=== PATIENT | female | born 1935 | race Caucasian/White ===

== ENCOUNTER 2017-11-13 15:26 | Inpatient (IN) | payer MEDICARE, OTHER ==
[~2017-11-13] VITALS: Ht 167.6 cm; Wt 59.6 kg
[~2017-11-13 15:26] MED LIST: AMOCLA875 PO; DIGO.125; DIGO.25 PO; ESTR.1TPW; ESTR.1TPW TOP; FENO145; FENO145 PO; FENO67 PO; FISH1000; FISH1000 PO; FLONASE ALLERG9.9 ML; FOLI400; FOLI400 PO; Flecainide Acet50 MG PO; GABA100 PO; GLUCOSAMIN-CHO1 EACH; Glucosamine &1 EACH PO; LEVO-T112 MCG PO; LEVSOD125 PO; METO25 PO; METO25ER PO; METO50 PO; METO50ER PO; OMEP10ER PO; OMEP40CA12 PO; OMEPRAZOLE MAGN20 MG PO; PARO10; PARO10 PO; WARF1 PO; WARF5 PO; WARF6 PO; WARF7.5 PO
[2017-11-13 16:53] LABS: BASOPHILS ABSOLUTE AUTO 0.04 K/mm3 (0.00-0.23); BASOPHILS PERCENT AUTO 1 % (0-2); EOSINOPHILS ABSOLUTE AUTO 0.04 K/mm3 (0.00-0.68); EOSINOPHILS PERCENT AUTO 1 % (0-6); Hematocrit 42.7 % (33.0-51.0); Hemoglobin 14.2 g/dL (11.5-16.0); IMMATURE GRAN ABSOLUTE AUTO 0.07 K/mm3 (0.00-0.10); IMMATURE GRAN PERCENT AUTO 1 % (0-1); LYMPHOCYTES ABSOLUTE AUTO 0.98 K/mm3 (0.84-5.20); LYMPHOCYTES PERCENT AUTO 13 % (21-46); MONOCYTES ABSOLUTE AUTO 0.42 K/mm3 (0.16-1.47); MONOCYTES PERCENT AUTO 6 % (4-13); Mean Corpuscular HGB 32.4 pg (26.0-34.0); Mean Corpuscular HGB Conc 33.3 g/dL (31.5-36.5); Mean Corpuscular Volume 98 fL (80-100); Mean Platelet Volume 11.6 fL (9.1-12.4); NEUTROPHILS ABSOLUTE AUTO 5.83 K/mm3 (1.96-9.15); NEUTROPHILS PERCENT AUTO 79 % (41-73); Platelet Count 182 K/mm3 (150-400); RDW Coefficient Variation 13.2 % (11.7-14.2); RDW Standard Deviation 47.5 fL (35.1-46.3); Red Blood Cell Count 4.38 M/mm3 (3.80-5.20); White Blood Cell Count 7.38 K/mm3 (4.00-11.30)
[2017-11-13 17:04] LABS: International Normalized Ratio 1.06
[2017-11-13 17:38] LABS: Alanine Aminotransfer (ALT/SGP 24 U/L (12-78); Albumin, Blood 3.4 g/dL (3.4-5.0); Albumin/Globulin Ratio 1.1 (0.8-1.8); Alk Phos 65 U/L (50-136); Anion Gap 7 mmol/L (6-16); Aspartate Aminotrans (AST/SGOT 15 U/L (12-37); Bilirubin, Total 1.2 mg/dL (0.1-1.0); Blood Urea Nitrogen 17 mg/dL (8-24); Bun/Creatinine Ratio 26.7 (12.0-20.0); CO2, Blood 27 mmol/L (21-32); Calcium, Blood 8.5 mg/dL (8.5-10.1); Chloride, Blood 109 mmol/L (98-108); Creatinine, Blood 0.64 mg/dL (0.40-1.00); Globulin, Blood 3.2 g/dL (2.2-4.0); Glomerular Filtration Rate >60 (60-); Glucose, Blood 94 mg/dL (70-99); Potassium, Blood 3.9 mmol/L (3.5-5.5); Sodium, Blood 143 mmol/L (136-145); Total Protein, Blood 6.6 g/dL (6.4-8.2)
[2017-11-13 17:54] LABS: Source, Urine Catheter
[2017-11-13 17:59] LABS: Appearance, Urine Clear (Clear); Bilirubin, Urine Neg (Neg); Blood, Urine Neg (Neg); Color, Urine Yellow (P-Yellow); Glucose Qualitative, Urine Neg (Neg); Ketones, Urine Neg (Neg); Leukocyte Esterase, Urine Neg (Neg); Nitrite, Urine Neg (Neg); Protein, Urine Neg (Neg); Specific Gravity, Urine 1.015 (1.003-1.022); Urobilinogen, Urine NORM (Normal)
[2017-11-14] MEDS ORDERED: ELIQUIS2.5 MG PO (03:12)
[2017-11-14] MEDS ORDERED: CYAFAPYR PO (03:14)
[2017-11-14 05:19] LABS: BASOPHILS ABSOLUTE AUTO 0.04 K/mm3 (0.00-0.23); BASOPHILS PERCENT AUTO 1 % (0-2); EOSINOPHILS ABSOLUTE AUTO 0.08 K/mm3 (0.00-0.68); EOSINOPHILS PERCENT AUTO 1 % (0-6); Hematocrit 40.6 % (33.0-51.0); Hemoglobin 13.5 g/dL (11.5-16.0); IMMATURE GRAN ABSOLUTE AUTO 0.02 K/mm3 (0.00-0.10); IMMATURE GRAN PERCENT AUTO 0 % (0-1); LYMPHOCYTES ABSOLUTE AUTO 1.05 K/mm3 (0.84-5.20); LYMPHOCYTES PERCENT AUTO 18 % (21-46); MONOCYTES ABSOLUTE AUTO 0.58 K/mm3 (0.16-1.47); MONOCYTES PERCENT AUTO 10 % (4-13); Mean Corpuscular HGB 32.6 pg (26.0-34.0); Mean Corpuscular HGB Conc 33.3 g/dL (31.5-36.5); Mean Corpuscular Volume 98 fL (80-100); Mean Platelet Volume 12.3 fL (9.1-12.4); NEUTROPHILS ABSOLUTE AUTO 4.22 K/mm3 (1.96-9.15); NEUTROPHILS PERCENT AUTO 71 % (41-73); Platelet Count 171 K/mm3 (150-400); RDW Coefficient Variation 13.2 % (11.7-14.2); Red Blood Cell Count 4.14 M/mm3 (3.80-5.20); White Blood Cell Count 5.99 K/mm3 (4.00-11.30)
[2017-11-14 05:32] LABS: International Normalized Ratio 1.06
[2017-11-14 05:53] LABS: Anion Gap 7 mmol/L (6-16); Blood Urea Nitrogen 19 mg/dL (8-24); CO2, Blood 25 mmol/L (21-32); Calcium, Blood 8.2 mg/dL (8.5-10.1); Chloride, Blood 110 mmol/L (98-108); Creatinine, Blood 0.63 mg/dL (0.40-1.00); Glomerular Filtration Rate >60 (60-); Glucose, Blood 114 mg/dL (70-99); Potassium, Blood 4.1 mmol/L (3.5-5.5); Sodium, Blood 142 mmol/L (136-145)
[2017-11-16 04:39] LABS: BASOPHILS ABSOLUTE AUTO 0.03 K/mm3 (0.00-0.23); BASOPHILS PERCENT AUTO 0 % (0-2); EOSINOPHILS ABSOLUTE AUTO 0.02 K/mm3 (0.00-0.68); EOSINOPHILS PERCENT AUTO 0 % (0-6); Hematocrit 37.4 % (33.0-51.0); Hemoglobin 12.3 g/dL (11.5-16.0); IMMATURE GRAN ABSOLUTE AUTO 0.07 K/mm3 (0.00-0.10); IMMATURE GRAN PERCENT AUTO 1 % (0-1); LYMPHOCYTES ABSOLUTE AUTO 0.82 K/mm3 (0.84-5.20); LYMPHOCYTES PERCENT AUTO 7 % (21-46); MONOCYTES ABSOLUTE AUTO 0.82 K/mm3 (0.16-1.47); MONOCYTES PERCENT AUTO 7 % (4-13); Mean Corpuscular HGB 32.8 pg (26.0-34.0); Mean Corpuscular HGB Conc 32.9 g/dL (31.5-36.5); Mean Corpuscular Volume 100 fL (80-100); Mean Platelet Volume 12.4 fL (9.1-12.4); NEUTROPHILS ABSOLUTE AUTO 9.35 K/mm3 (1.96-9.15); NEUTROPHILS PERCENT AUTO 84 % (41-73); Platelet Count 160 K/mm3 (150-400); RDW Coefficient Variation 13.1 % (11.7-14.2); RDW Standard Deviation 48.3 fL (35.1-46.3); Red Blood Cell Count 3.75 M/mm3 (3.80-5.20); White Blood Cell Count 11.11 K/mm3 (4.00-11.30)
[2017-11-17 09:04] LABS: Source, Urine Clean Catch
[2017-11-17 09:12] LABS: Bilirubin, Urine Neg (Neg); Blood, Urine Neg (Neg); Glucose Qualitative, Urine Neg (Neg); Ketones, Urine Neg (Neg); Leukocyte Esterase, Urine Neg (Neg); Nitrite, Urine Neg (Neg); Protein, Urine Neg (Neg); Urobilinogen, Urine NORM (Normal)
[2017-11-17 09:21] LABS: Appearance, Urine Clear (Clear); Color, Urine Yellow (P-Yellow)
[2017-11-18] MEDS ORDERED: DOCU100 PO (11:17)
[2017-11-18] MEDS ORDERED: GAVILAX17 GM PO (11:18)
== END 2017-11-18 15:11 | disposition home health service (06) | DRG 482 ==
LOC: ER 15:26 → SURS 16:52
PROVIDERS: Emergency Medicine; Family Medicine; Internal Medicine; Orthopaedic Surgery
PROC: 0QH734Z Insertion of Internal Fixation Device into Left Upper Femur, Percutaneous Approach (ICD-10-PCS; principal; 2017-11-15 09:00)
DX: S72.002A Fracture of unspecified part of neck of left femur, initial encounter for closed fracture (principal); G62.9 Polyneuropathy, unspecified; I48.91 Unspecified atrial fibrillation; E78.5 Hyperlipidemia, unspecified; E03.9 Hypothyroidism, unspecified; K21.9 Gastro-esophageal reflux disease without esophagitis; Z79.01 Long term (current) use of anticoagulants; W19.XXXA Unspecified fall, initial encounter; Y92.512 Supermarket, store or market as the place of occurrence of the external cause; Z88.8 Allergy status to other drugs, medicaments and biological substances; Z95.0 Presence of cardiac pacemaker; Z87.891 Personal history of nicotine dependence; Z79.51 Long term (current) use of inhaled steroids; Z79.899 Other long term (current) drug therapy
CPT/HCPCS: 36415; 51702; 71045; 73502; 80048; 80053; 81003; 84484; 85025; 85610; 85730; 86850; 86900; 86901; 93005; 93010; 96374; 96375; 97110; 97116; 97162; 97530; 99285; C1713; C1769; G8978; G8979; J0461; J0690; J1100; J1170; J2370; J2405; J3010; J7030

== ENCOUNTER → 2018-12-28 | Outpatient (CLI) | payer MEDICARE, OTHER ==
[~2018-12-28] MED LIST changes: +CYAFAPYR PO; +DOCU100 PO; +ELIQUIS2.5 MG PO; +GAVILAX17 GM PO
== END | disposition home or self-care (01) ==
LOC: LAB 12:00 → LAB SHORT 12:00
DX: N39.0 Urinary tract infection, site not specified (principal)
CPT/HCPCS: 87086

== ENCOUNTER → 2019-01-02 | Outpatient (CLI) | payer MEDICARE, OTHER | END | disposition home or self-care (01) | LOC: LAB SHORT 14:45 → LAB 14:45 | DX: R30.0 Dysuria (principal) | CPT/HCPCS: 87086 ==

== ENCOUNTER 2019-05-21 11:32 | Emergency (ER) | payer MEDICARE, OTHER ==
[~2019-05-21] VITALS: Ht 165.1 cm; Wt 70.3 kg
[2019-05-21 12:20] LABS: BASOPHILS ABSOLUTE AUTO 0.05 K/mm3 (0.00-0.23); BASOPHILS PERCENT AUTO 1 % (0-2); EOSINOPHILS ABSOLUTE AUTO 0.07 K/mm3 (0.00-0.68); EOSINOPHILS PERCENT AUTO 1 % (0-6); Hematocrit 44.4 % (33.0-51.0); Hemoglobin 14.7 g/dL (11.5-16.0); IMMATURE GRAN ABSOLUTE AUTO 0.03 K/mm3 (0.00-0.10); IMMATURE GRAN PERCENT AUTO 1 % (0-1); LYMPHOCYTES ABSOLUTE AUTO 1.63 K/mm3 (0.84-5.20); LYMPHOCYTES PERCENT AUTO 26 % (21-46); MONOCYTES ABSOLUTE AUTO 0.46 K/mm3 (0.16-1.47); MONOCYTES PERCENT AUTO 7 % (4-13); Mean Corpuscular HGB 33.1 pg (26.0-34.0); Mean Corpuscular HGB Conc 33.1 g/dL (31.5-36.5); Mean Corpuscular Volume 100 fL (80-100); Mean Platelet Volume 12.1 fL (9.1-12.4); NEUTROPHILS ABSOLUTE AUTO 3.95 K/mm3 (1.96-9.15); NEUTROPHILS PERCENT AUTO 64 % (41-73); Platelet Count 183 K/mm3 (150-400); RDW Coefficient Variation 12.7 % (11.7-14.2); RDW Standard Deviation 47.6 fL (35.1-46.3); Red Blood Cell Count 4.44 M/mm3 (3.80-5.20); White Blood Cell Count 6.19 K/mm3 (4.00-11.30)
[2019-05-21 12:33] LABS: Alanine Aminotransfer (ALT/SGP 19 U/L (12-78); Albumin, Blood 3.7 g/dL (3.4-5.0); Albumin/Globulin Ratio 1.2 (0.8-1.8); Alk Phos 60 U/L (50-136); Anion Gap 7 mmol/L (6-16); Aspartate Aminotrans (AST/SGOT 14 U/L (12-37); Blood Urea Nitrogen 22 mg/dL (8-24); Bun/Creatinine Ratio 26.8 (12.0-20.0); CO2, Blood 25 mmol/L (21-32); Calcium, Blood 8.6 mg/dL (8.5-10.1); Chloride, Blood 109 mmol/L (98-108); Creatinine, Blood 0.82 mg/dL (0.40-1.00); Globulin, Blood 3.2 g/dL (2.2-4.0); Glomerular Filtration Rate >60 (60-); Glucose, Blood 93 mg/dL (70-99); Potassium, Blood 4.3 mmol/L (3.5-5.5); Sodium, Blood 141 mmol/L (136-145); Total Protein, Blood 6.9 g/dL (6.4-8.2); Troponin I <0.015 ng/mL (0.000-0.040)
[2019-05-21 12:53] LABS: International Normalized Ratio 0.97; Prothrombin Time Results 10.3 Sec (9.7-11.5)
== END 2019-05-21 13:53 | disposition home or self-care (01) ==
LOC: ER 11:32
PROVIDERS: Emergency Medicine
DX: I48.91 Unspecified atrial fibrillation (principal); Z95.0 Presence of cardiac pacemaker; E03.9 Hypothyroidism, unspecified; E78.5 Hyperlipidemia, unspecified; Z88.8 Allergy status to other drugs, medicaments and biological substances; Z91.048 Other nonmedicinal substance allergy status; Z79.899 Other long term (current) drug therapy; Z87.891 Personal history of nicotine dependence
CPT/HCPCS: 36415; 80053; 84484; 85025; 85610; 85730; 93005; 93010; 99285-25

== ENCOUNTER 2019-05-23 13:14 | Day surgery (SDC) | payer MEDICARE, OTHER ==
[~2019-05-23] VITALS: Ht 162.6 cm; Wt 70.0 kg
[2019-05-23] MEDS ORDERED: FISH OIL 1,001000 MG PO (14:11)
[2019-05-23] MEDS ORDERED: PARO10 PO (14:12)
--- NOTE | 2019-05-23 17:20 | NUR ---
PT TO RECOVERY POST PROCEDURE. PT IS DROWSY, BUT ANSWERS QUESTIONS APPROPRIATELY. PT DENIES PAIN, SOB OR NAUSEA. MONITOR AFIB WITH PACED BEATS 70'S, B/P 120/74, AFEBRILE, SPO2 95% RA. L CHEST SITE NO SWELLING/HEMATOMA, TELFA AND TEGADERM DRSG C,D,I. PT'S AT BEDSIDE, ATTENTIVE.
--- NOTE | 2019-05-23 18:07 | NUR ---
EXTENDED RECONVERY PCU 14 PT REPORT RECEIVED AT BEDSIDE FROM CYNDY. PT ALERT, SLEEPY. ABLE TO TRANSFER WITH 1 ASSIST. WEAK AND UNSTEADY. A bit grooggy/ at bedside. vss. left chest incision cd&i. no crepitus or hematoma noted. No bleeding in arm pit noted. pt expressed comfort. Juice and water provided for her. awaiting a dinner meal. Continue pot.
--- NOTE | 2019-05-23 20:13 | NUR ---
DISCHARGE AT APPROX 1930 PATIENT STATED THAT SHE FELT SHE WAS READY TO GO HOME. PATIENT UP AND WALKING AROUND IN ROOM WELL AT THIS TIME. PATIENT STATES SHE FEELS SHE IS BACK TO BASELINE. PATIENT'S PACEMAKER SITE APPEARS DRY WITH A TRACE AMOUNT OF BLOOD ON THE LEFT SIDE OF BANDAGE THAT HAS REMAINED UNCHANGED PER DAY SHIFT RN REPORT, NO CHANGES NOTED TO SITE SINCE ASSUMPTION OF CARE. DISCHARGE INSTRUCTIONS AND PAPERS PROVIDED TO PATIENT. PATIENT EDUCATED ON POST PACEMAKER RESTRICTIONS. PATIENT VERBALIZES UNDERSTANDING. IV AND TELE REMOVED. PATIENT DISCHARGED VIA WHEELCHAIR AT APPROX 1950. PATIENTS STATES MULITPULE TIMES THAT SHE FEELS READY TO GO HOME. PATIENT DISCHARGED VIA WHEELCHAIR BY JUAN DANIEL HER AT APPROX 1950.
== END 2019-05-23 19:50 | disposition home or self-care (01) ==
LOC: MHTC 13:14 → PCU 17:06 → MHTC 19:50
DX: Z45.010 Encounter for checking and testing of cardiac pacemaker pulse generator [battery] (principal); I48.91 Unspecified atrial fibrillation; K21.9 Gastro-esophageal reflux disease without esophagitis; E78.5 Hyperlipidemia, unspecified; E03.9 Hypothyroidism, unspecified; Z79.899 Other long term (current) drug therapy; Z79.01 Long term (current) use of anticoagulants; Z87.891 Personal history of nicotine dependence; Z88.8 Allergy status to other drugs, medicaments and biological substances; Z88.1 Allergy status to other antibiotic agents; Z79.02 Long term (current) use of antithrombotics/antiplatelets
CPT/HCPCS: 33228; 93288; 99152; 99153; C1785; J0690; J1644; J2250; J3010; J7030; J7040

== ENCOUNTER 2020-12-10 06:11 | Day surgery (SDC) | payer MEDICARE, OTHER ==
[~2020-12-10] VITALS: Ht 170.2 cm; Wt 72.8 kg
[~2020-12-10 06:11] MED LIST changes: +COQ-10100 MG PO; +EUTHYROX125 MCG PO; +FISH OIL 1,001000 MG PO; +FOLI1 PO; -FOLI400 PO; -LEVSOD125 PO; +LORA10ER PO; +VITAMIN B125000 MC1 PO; +VITAMIN D310 MC4 PO
--- NOTE | 2020-12-10 07:08 | NUR ---
Ambulatory in Day Surgery Surgical site prepped with 2% Chlorhexidine cloth wipe. Paula Paws warming gown applied. History, Chart, Medications and Allergies reviewed before start of procedure.Lungs clear T/O to Auscultation. Patient confirms NPO status and agrees with scheduled surgery. Pre-Op teaching done. Pt verbalizes understanding. Patient States Post-Procedure ride home has been arranged.
--- NOTE | 2020-12-10 09:34 | NUR ---
PT ARRIVED TO UNIT AT APROX 1015 FROM PACU S/O HARDWARE REMOVAL FROM R HIP. SURGICAL SITE X'S 1 TO R HIP COVERED WITH ADHESIVE DRESSING THAT IS C/D/I. SPINAL ANESTHESIA, PT HAS NO SENSATION IN BILAT FEETTO KNEES WITH FEELING IN THIGHS-DENIES PAIN. PT GIVEN CLEAR LIQUIDS AND POST-OP VS STARTED.
[2020-12-10] MEDS ORDERED: TRAM50 PO (15:22)
[2021-03-14] MEDS ORDERED: ACET325 PO (12:56)
== END 2020-12-10 15:47 | disposition home or self-care (01) ==
LOC: ORSCMMR 06:11 → SURS 09:29 → ORSCMMR 09:29 → ORD 13:45 → ORSCMMR 13:45 → SURS 15:47
PROVIDERS: Orthopaedic Surgery
PROC: 0SPB04Z Removal of Internal Fixation Device from Left Hip Joint, Open Approach (ICD-10-PCS; principal; 2020-12-10 07:30)
DX: T84.9XXA Unspecified complication of internal orthopedic prosthetic device, implant and graft, initial encounter (principal); M25.552 Pain in left hip; I25.10 Atherosclerotic heart disease of native coronary artery without angina pectoris; I48.0 Paroxysmal atrial fibrillation; Z79.01 Long term (current) use of anticoagulants; I48.91 Unspecified atrial fibrillation; E03.9 Hypothyroidism, unspecified; K21.9 Gastro-esophageal reflux disease without esophagitis; Z79.899 Other long term (current) drug therapy
CPT/HCPCS: A9270; C1769; J0690; J2704; J3010; J7120

== ENCOUNTER 2021-03-15 06:06 | Day surgery (SDC) | payer MEDICARE, OTHER ==
[~2021-03-15] VITALS: Ht 167.6 cm; Wt 70.0 kg
[~2021-03-15 06:06] MED LIST changes: +ACET325 PO; +TRAM50 PO
[2021-03-15] MEDS ORDERED: ASPI81CH PO (06:36)
[2021-03-15] MEDS ORDERED: CLOP75 PO (11:26)
[2021-03-15] MEDS ORDERED: METOPROLOL SUCC25 MG PO (11:27)
--- NOTE | 2021-03-15 12:45 | NUR ---
PT UP TO BTR AT NOON, SIGNIFACENT SWELLING ON R FA, MAN PRESSURE TO BTR, THEN MAN PRESSURE AND ADDED 2 CC'S AIR TO TR BAND. PRESSURE HELD FOR 1 HOUR, SITE WRAPPED MOD PRESSURE DRESSING AND COBAN, REVIEWED WITH DR MCKENZIE WHO VISUALIZED ARM AND CONCLUDES IT IS STABLE AT THIS TIME, DR MCKENZIE SPOKE W PT ABOUT METOPROLOL ORDER - DC'D METOPROLOL ORDER. PLAN IS TO GIVE PLAVIX AT DC
--- NOTE | 2021-03-15 16:10 | NUR ---
DISCHARGE PT AMBULATED TO RESTROOM AND DRESSED SELF WITH NO COMPLCATIONS. DR. MCKENZIE AT CHAIR SIDE TO ANSWER ALL OF PT QUESTIONS AND TO EVALUATE PTS RRAD SITE. RRAD SITE WITH NO NEW HEMATOMA, BLEEDING, OR OOZING. PT DOES HAVE A LARGE BRUISE UP HER FOREARM THAT IS NOT HARD TO THE TOUCH. PTS HAND ALSO IS SWOLLEN WITH BRUISING THAT HAS NOT CHANGED SINCE ORIGINAL BLEED. OK TO DC PT PER DR. MCKENZIE. PT WAS MEDICATED WITH 600MG PO PLAVIX UPON DC ORDERED BY DR. MCKENZIE. PT VOICED HER CONCERNS TO DR. MCKENZIE ABOUT ALL THE BLOOD THINNERS SHE WILL BE ON AND DR. MCKENZIE INFORMED PT ON THE NEED FOR THESE MEDICATIONS. PT STATES HER UNDERSTANDING OF DC AND SITE CARE INSTRUCTIONS AND DENIES ANY QUESTIONS OR CONCERNS FOR THIS RN UPON DCD. IV WAS DCD WITH CATH INTACT. RRAD SITE REMAIN STABLE. TR BAND WAS REMOVED, SITE CLEANED AND CLOTH DOT DRESSIGN APPLIED. WHITE ARM SPLINT WAS PLACED ON R ARM AND THEN IN A SPLINT. PT TAKE TO EXIT VIA WHEELCHAIR WHERE WAS WAITING WITH VEHICLE.
== END 2021-03-15 16:44 | disposition home or self-care (01) ==
LOC: MHTC 06:06 → ORSCMMR 06:07 → MHTC 06:30
DX: I25.110 Atherosclerotic heart disease of native coronary artery with unstable angina pectoris (principal); I25.82 Chronic total occlusion of coronary artery; I48.21 Permanent atrial fibrillation; I49.5 Sick sinus syndrome; E78.5 Hyperlipidemia, unspecified; I10 Essential (primary) hypertension; E03.9 Hypothyroidism, unspecified; K21.9 Gastro-esophageal reflux disease without esophagitis; Z95.0 Presence of cardiac pacemaker; Z87.891 Personal history of nicotine dependence; Z79.01 Long term (current) use of anticoagulants
CPT/HCPCS: 76937; 84484; 85347; 93005; 93010; 93458; 99152; 99153; A9270; C1725; C1769; C1874; C1887; C1894; C9600; J1644; J2250; J3010; J7030; J7050; Q9967

== ENCOUNTER 2021-03-17 10:25 | Emergency (ER) | payer MEDICARE, OTHER ==
[~2021-03-17] VITALS: Ht 157.5 cm; Wt 68.0 kg
[~2021-03-17 10:25] MED LIST changes: +ASPI81CH PO; +CLOP75 PO; +METOPROLOL SUCC25 MG PO
[2021-03-17 11:05] LABS: BASOPHILS ABSOLUTE AUTO 0.07 K/mm3 (0.00-0.23); BASOPHILS PERCENT AUTO 2 % (0-2); EOSINOPHILS ABSOLUTE AUTO 0.18 K/mm3 (0.00-0.68); EOSINOPHILS PERCENT AUTO 4 % (0-6); Hematocrit 37.5 % (33.0-51.0); Hemoglobin 12.4 g/dL (11.5-16.0); IMMATURE GRAN ABSOLUTE AUTO 0.05 K/mm3 (0.00-0.10); IMMATURE GRAN PERCENT AUTO 1 % (0-1); LYMPHOCYTES ABSOLUTE AUTO 0.98 K/mm3 (0.84-5.20); LYMPHOCYTES PERCENT AUTO 22 % (21-46); MONOCYTES ABSOLUTE AUTO 0.36 K/mm3 (0.16-1.47); MONOCYTES PERCENT AUTO 8 % (4-13); Mean Corpuscular HGB 33.9 pg (26.0-34.0); Mean Corpuscular HGB Conc 33.1 g/dL (31.5-36.5); Mean Corpuscular Volume 103 fL (80-100); Mean Platelet Volume 12.4 fL (9.1-12.4); NEUTROPHILS ABSOLUTE AUTO 2.91 K/mm3 (1.96-9.15); NEUTROPHILS PERCENT AUTO 64 % (41-73); Platelet Count 181 K/mm3 (150-400); RDW Coefficient Variation 13.9 % (11.7-14.2); Red Blood Cell Count 3.66 M/mm3 (3.80-5.20); White Blood Cell Count 4.55 K/mm3 (4.00-11.30)
== END 2021-03-17 12:28 | disposition home or self-care (01) ==
LOC: ER 10:25
PROVIDERS: Emergency Medicine
DX: L76.32 Postprocedural hematoma of skin and subcutaneous tissue following other procedure (principal); Z88.8 Allergy status to other drugs, medicaments and biological substances; Z91.09 Other allergy status, other than to drugs and biological substances; Z79.899 Other long term (current) drug therapy; Z79.01 Long term (current) use of anticoagulants; Z87.891 Personal history of nicotine dependence; Z95.0 Presence of cardiac pacemaker; Z95.5 Presence of coronary angioplasty implant and graft; Y84.0 Cardiac catheterization as the cause of abnormal reaction of the patient, or of later complication, without mention of misadventure at the time of the procedure
CPT/HCPCS: 36415; 85025; 93931; 99284-25